=== PATIENT | female | born 1995 | race Two or more races ===

== ENCOUNTER 2024-08-12 11:00 | Day surgery (SDC) | payer MEDICAID, SELFPAY ==
[2024-08-11 09:59] LABS: HCG Qualitative,Urine Negative
[2024-08-11 14:44] VITALS: BMI 54.6
[2024-08-12] VITALS (7 sets, daily range): BP systolic 101–113; BP diastolic 54–79; PULSE 81–96; RESP 12–26; TEMP 36.4–36.6; O2SAT 94–98; BMI 56.0
--- NOTE | 2024-08-12 13:20 | SUR.PHASEII ---
1320: Pt. AAOx4, vitals stable, breathing unlabored, no complaint of pain or nausea, no dressing in place, no active bleed noted, report received from MD Moseley and Misty BUTT.
--- NOTE | 2024-08-12 14:00 | SUR.PHASEII ---
1400: Pt. AAOx4, vitals stable, breathing unlabored, no complaint of pain or nausea, no dressing in place, no active bleed noted, pt. tolerated sips of juice well, pt. ambulated to wheelchair with steady gait and no assist, no complications. Gave discharge instructions to the pt. and her ride, both verbalized understanding and had no further questions. Pt. left with all pesonal belongings.
== END 2024-08-12 14:00 | disposition home or self-care (01) ==
PROVIDERS: Referring Provider Internal Medicine Gastroenterology; Visit Provider Internal Medicine Gastroenterology
PROC: (CPT 43239; principal; 2024-08-12 13:30)
DX: K29.70 Gastritis, unspecified, without bleeding (principal); B96.81 Helicobacter pylori [H. pylori] as the cause of diseases classified elsewhere; K44.9 Diaphragmatic hernia without obstruction or gangrene; K31.89 Other diseases of stomach and duodenum; E66.9 Obesity, unspecified; Z68.43 Body mass index [BMI] 50.0-59.9, adult; K31.A0 Gastric intestinal metaplasia, unspecified; K29.50 Unspecified chronic gastritis without bleeding
CPT/HCPCS: 43239; 81025